=== PATIENT | female | born 1990 | race Caucasian/White ===

== ENCOUNTER → 2020-08-19 | Outpatient (CLI) | payer OTHER ==
[~2020-08-19] MED LIST: LEXAPRO 10 MG T10 M2 PO; NORCO 5-325 TA1 EACH PO; PSEUDOEPHEDRIN120 M1
== END ==
LOC: RAD 12:57
PROVIDERS: ATTEND Nurse Practitioner
DX: R39.15 Urgency of urination (principal); R10.9 Unspecified abdominal pain; Z87.442 Personal history of urinary calculi